=== PATIENT | male | born 1985 | race Caucasian/White ===

== ENCOUNTER 2018-04-27 21:05 | Emergency (ER) | payer OTHER ==
[~2018-04-27] VITALS: Ht 190.5 cm; Wt 95.2 kg
[2018-04-27] MEDS ORDERED: IBUP600 PO (23:56)
[2018-04-27] MEDS ORDERED: CYCL10 PO (23:56)
== END 2018-04-28 01:44 | disposition home or self-care (01) ==
LOC: ER 21:05
DX: S29.012A Strain of muscle and tendon of back wall of thorax, initial encounter (principal); S16.1XXA Strain of muscle, fascia and tendon at neck level, initial encounter; V43.61XA Car passenger injured in collision with sport utility vehicle in traffic accident, initial encounter
CPT/HCPCS: 72040; 72070; 99283-25; J1885